=== PATIENT | male | born 1975 | race Two or more races ===

== ENCOUNTER 2018-08-31 17:41 | Emergency (ER) | payer OTHER ==
[~2018-08-31] VITALS: Ht 180.3 cm; Wt 95.3 kg
== END 2018-08-31 19:48 | disposition home or self-care (01) ==
LOC: ER 17:41
DX: G44.209 Tension-type headache, unspecified, not intractable (principal)

== ENCOUNTER 2019-12-23 14:26 | Emergency (ER) | payer OTHER ==
[~2019-12-23] VITALS: Ht 180.3 cm; Wt 88.5 kg
== END 2019-12-23 17:53 | disposition home or self-care (01) ==
LOC: ER 14:26
DX: R03.0 Elevated blood-pressure reading, without diagnosis of hypertension (principal)

== ENCOUNTER 2020-06-03 21:18 | Emergency (ER) | payer OTHER ==
[~2020-06-03] VITALS: Ht 180.3 cm; Wt 93.4 kg
== END 2020-06-03 22:37 | disposition home or self-care (01) ==
LOC: ER 21:18
DX: R05 Cough (principal)

== ENCOUNTER 2020-07-01 16:54 | Inpatient (IN) | payer OTHER ==
[~2020-07-01] VITALS: Ht 177.8 cm; Wt 81.6 kg
--- NOTE | 2020-07-01 17:18 | NUR ---
PT ALERTA Y ORIENTADO X3 ESFERAS REFIERE FUE DX CON COVID 19 EL PASADO MIERCOLES CON SINTOMAS LEVES Y MANEJABLES. EL ADRIANA DE HOY EN LA MANANA SE DESPERTO CON FALTA DE AIRE Y VISITO EL [facility] DONDE LE DIERON EL TRATAMIENTO MONOCLONAL PARA EL COVID, E INDICA SINTIO MEJORIA EN EL MOMENTO Y LE DIERON EL ROSELIA. AL LLEGAR A DODSON HOGAR SINTIO TEMBLORES, FALTA DE AIRE Y DEBILIDAD MUSCULAR GENERALIZADA. LLEGA A ER CON KIN SATURACION DE PULSO 88-90%, TEMPERATURA DE 104.5 Y CON DIFICULTAD PARA COMPLETAR ORACIONES. SE UBICA EN ZENAIDA EN SECCION K AISLAMIENTO, SE SUBEN BARANDAS Y SE COLOCAN FRENOS POR PRECAUCION.
[2020-07-14] MEDS ORDERED: ELIQUIS5 MG PO (08:38)
== END 2020-07-14 12:14 | disposition home or self-care (01) | DRG 177 ==
LOC: ER 16:54 → MEDJ 18:30
PROVIDERS: ADMIT Internal Medicine; ATTEND Internal Medicine
PROC: 8E0ZXY6 Isolation (ICD-10-PCS; 2020-07-01)
PROC: 3E0F7SF Introduction of Other Gas into Respiratory Tract, Via Natural or Artificial Opening (ICD-10-PCS; 2020-07-01)
PROC: BW24ZZZ Computerized Tomography (CT Scan) of Chest and Abdomen (ICD-10-PCS; 2020-07-01)
PROC: XW033E5 Introduction of Remdesivir Anti-infective into Peripheral Vein, Percutaneous Approach, New Technology Group 5 (ICD-10-PCS; principal; 2020-07-02)
PROC: 4A12X4Z Monitoring of Cardiac Electrical Activity, External Approach (ICD-10-PCS; 2020-07-02)
PROC: BW2410Z Computerized Tomography (CT Scan) of Chest and Abdomen using Low Osmolar Contrast, Unenhanced and Enhanced (ICD-10-PCS; 2020-07-08)
PROC: B24BYZZ Ultrasonography of Heart with Aorta using Other Contrast (ICD-10-PCS; 2020-07-08)
PROC: B54DZZZ Ultrasonography of Bilateral Lower Extremity Veins (ICD-10-PCS; 2020-07-11)
DX: U07.1 COVID-19 (principal); J12.82 Pneumonia due to coronavirus disease 2019; I26.99 Other pulmonary embolism without acute cor pulmonale; I10 Essential (primary) hypertension; R09.02 Hypoxemia; R06.02 Shortness of breath; G44.209 Tension-type headache, unspecified, not intractable

== ENCOUNTER 2020-07-23 10:24 | Emergency (ER) | payer OTHER ==
[~2020-07-23] VITALS: Ht 180.3 cm; Wt 92.1 kg
[~2020-07-23 10:24] MED LIST: ELIQUIS5 MG PO
[2020-07-23] MEDS ORDERED: CELEBREX100 MG PO (16:52)
== END 2020-07-23 17:21 | disposition home or self-care (01) ==
LOC: ER 10:24 → CPU-OBS 10:26 → ER 10:26
DX: R07.89 Other chest pain (principal); M94.0 Chondrocostal junction syndrome [Tietze]
CPT/HCPCS: G0378; G0379; 93005; 82805; 36600

== ENCOUNTER 2021-12-30 20:39 | Emergency (ER) | payer OTHER ==
[~2021-12-30] VITALS: Ht 180.3 cm; Wt 93.0 kg
[~2021-12-30 20:39] MED LIST changes: +CELEBREX100 MG PO
== END 2021-12-30 22:53 | disposition home or self-care (01) ==
LOC: ER 20:39
DX: R51.9 Headache, unspecified (principal)

== ENCOUNTER 2022-08-14 12:51 | Emergency (ER) | payer OTHER ==
[~2022-08-14] VITALS: Ht 180.3 cm; Wt 88.5 kg
== END 2022-08-14 17:02 ==
LOC: ER 12:51
DX: G44.209 Tension-type headache, unspecified, not intractable (principal)

== ENCOUNTER 2024-01-29 12:01 | Emergency (ER) | payer OTHER ==
[~2024-01-29] VITALS: Ht 180.3 cm; Wt 104.3 kg
[2024-01-29] MEDS ORDERED: cloNIDine HCL 0.2 MG TABLET PO STA (13:18)
[2024-01-29 14:02] LABS: PH,URINE 5.5 (5.0-8.0); URINE APPEARANCE Clear; URINE BILIRRUBIN Negative (NEGATIVE); URINE BLOOD Negative; URINE COLOR Yellow; URINE GLUCOSE Negative (NEGATIVE); URINE KETONE Negative (NEGATIVE); URINE LEUKOCYTE Negative; URINE NITRATE Negative; URINE PROTEIN Negative (NEGATIVE); URINE UROBILINOGEN 0.2 E.U./dl
[2024-01-29 14:04] LABS: HEMOGLOBIN 15.2 g/dL (13-16.00); MEAN CELL VOLUME 89.3 fL (80.0-100.00); MEAN CORPUSCULAR HEMOGLOBIN 30.2 pg (27.00-32.0); MEAN CORPUSCULAR HGB CONC 33.8 g/dl (32.0-36.0); PLATELET COUNT 152 K/uL (150-450); RED BLOOD COUNT 5.03 M/uL (4.00-6.00); RED CELL DISTRIBUTION WIDTH 13.2 % (11.5-14.5)
[2024-01-29 14:06] LABS: URINE WBC 2.7 uL (0.0-23.2)
[2024-01-29 14:10] LABS: URINE BACTERIA 2.5 uL (0.0-1933); URINE EPITHELIAL CELLS 0.1 uL (0.0-38.8)
[2024-01-29 14:20] LABS: CALCIUM 9.4 mg/dL (8.5-10.1); CREATININE SERUM 1.2 mg/dL (0.70-1.30); GFR 65.18; POTASSIUM 3.97 mEq/L (3.5-5.1)
== END 2024-01-29 14:53 | disposition home or self-care (01) ==
LOC: ER 12:03
PROVIDERS: General Practice
DX: R51.9 Headache, unspecified (principal); I10 Essential (primary) hypertension

== ENCOUNTER 2024-05-27 17:11 | Inpatient (IN) | payer OTHER ==
[~2024-05-27] VITALS: Ht 172.7 cm; Wt 104.3 kg
[2024-05-27] MEDS ORDERED: IRBESARTAN300 MG (17:17)
[2024-05-27] MEDS ORDERED: BUDESONIDE 0.5 MG/2 ML AMPUL.NEB IH ONE (17:45)
[2024-05-27] MEDS ORDERED: IPRATROPIUM/ALBUTEROL SULFATE 3 ML AMPUL.NEB IH SCH (17:45)
[2024-05-27 18:06] LABS: HEMATOCRIT 46.8 % (39.0-48.0); HEMOGLOBIN 15.6 g/dL (13-16.00); MEAN CELL VOLUME 91.3 fL (80.0-100.00); MEAN CORPUSCULAR HEMOGLOBIN 30.4 pg (27.00-32.0); MEAN CORPUSCULAR HGB CONC 33.3 g/dl (32.0-36.0); PLATELET COUNT 142 K/uL (150-450); RED BLOOD COUNT 5.13 M/uL (4.00-6.00); RED CELL DISTRIBUTION WIDTH 13.3 % (11.5-14.5)
[2024-05-27 21:02] LABS: URINE APPEARANCE Clear; URINE BILIRRUBIN Negative (NEGATIVE); URINE BLOOD Negative; URINE COLOR Yellow; URINE GLUCOSE Negative (NEGATIVE); URINE KETONE Trace (NEGATIVE); URINE LEUKOCYTE Negative; URINE NITRATE Negative; URINE PROTEIN 30 (NEGATIVE)
[2024-05-27 21:06] LABS: URINE BACTERIA 4.8 uL (0.0-1933); URINE EPITHELIAL CELLS 2.5 uL (0.0-38.8); URINE RBC 4.1 uL (0.0-20.8); URINE WBC 3.4 uL (0.0-23.2)
[2024-05-27 21:22] LABS: ALBUMIN 3.9 gm/dL (3.4-5.0); BILIRUBIN TOTAL 0.57 mg/dL (0.3-1.2); CREATININE SERUM 1.23 mg/dL (0.70-1.30); GFR 63.35; GLOBULINA 4.1 G/DL (2.4-3.5); POTASSIUM 3.86 mEq/L (3.5-5.1)
[2024-05-27 21:23] LABS: URINE CAST 0.29 uL (0.0-1.40)
[2024-05-27 22:20] LABS: ABG PH 7.467 (7.35-7.45); ABG PO2 79.4 mmHg (80-100); ABG pCO2 32.2 mmHg (35-45); BASE EXCESS -0.1 mmol/l; BICARBONATE 22.8 mmol/l (23-25); SaO2 96.4 %; Tco2 23.8 mmol/l; allen test SATISFACTORY; o2 21 %; puncture site RADIAL LEFT
[2024-05-27] MEDS ORDERED: AZITHROMYCIN 500 MG VIAL IV ONE (22:30)
[2024-05-27] MEDS ORDERED: CEFTRIAXONE SODIUM 2,000 MG VIAL IV ONE (22:30)
[2024-05-27] MEDS ORDERED: 0.9 % SODIUM CHLORIDE 1,000 ML IV ONE (22:45)
[2024-05-28] MEDS ORDERED: METHYLPREDNISOLONE SOD SUCC 40 MG VIAL IV SCH (00:38)
[2024-05-28] MEDS ORDERED: 0.9 % SODIUM CHLORIDE 1,000 ML IV SCH (00:45)
[2024-05-28] MEDS ORDERED: ACETAMINOPHEN 500 MG GEL..CAP PO PRN (00:45)
[2024-05-28] MEDS ORDERED: IPRATROPIUM BROMIDE 0.5 MG/2.5 ML AMPUL.NEB IH SCH ×2 (01:00→13:00)
[2024-05-28] MEDS ORDERED: GUAIFEN/DEXTROMETHORPHAN/PE 10 ML BLIST.PACK PO SCH (01:00)
[2024-05-28 01:42] LABS: INR 1.03; PARTIAL THROMBOPLASTIN TIME 32.3 SECONDS (22.0-34.0); PROTHROMBIN TIME 11.2 SECONDS (9.0-11.5)
[2024-05-28] MEDS ORDERED: LEVALBUTEROL HCL 1.25 MG/3 ML SOLUTION IH SCH (08:00)
[2024-05-28 08:24] VITALS: BP 138/83
[2024-05-28] MEDS ORDERED: FAMOTIDINE/PF 20 MG in 0.9 % SODIUM CHLORIDE 8 ML IV PUSH SCH (09:00)
[2024-05-28] MEDS ORDERED: AZITHROMYCIN 500 MG in DEXTROSE 5 % IN WATER 250 ML IV SCH (09:00)
[2024-05-28] MEDS ORDERED: IRBESARTAN 300 MG TABLET PO SCH (09:00)
[2024-05-28] MEDS ORDERED: BUDESONIDE 0.5 MG/2 ML AMPUL.NEB IH SCH (09:00)
[2024-05-28] MEDS ORDERED: ENOXAPARIN SODIUM 40 MG/0.4 ML SYRINGE SUBCUTANEO SCH (09:00)
[2024-05-28] MEDS ORDERED: CEFTRIAXONE SODIUM 2,000 MG in 0.9 % SODIUM CHLORIDE 100 ML IV SCH (09:00)
[2024-05-28] MEDS ORDERED: AZITHROMYCIN 500 MG VIAL IV STA (12:25)
[2024-05-28 16:59] VITALS: BP 142/85; O2SAT 98
[2024-05-28 18:40] LABS: MYCOPLASMA PNEUMONIAE IGM NON REACTIVE (NO REACTIVE)
[2024-05-29 01:08] VITALS: BP 147/77; O2SAT 98
[2024-05-29 06:42] LABS: HEMATOCRIT 42.1 % (39.0-48.0); HEMOGLOBIN 14.5 g/dL (13-16.00); MEAN CELL VOLUME 90.3 fL (80.0-100.00); MEAN CORPUSCULAR HGB CONC 34.3 g/dl (32.0-36.0); PLATELET COUNT 163 K/uL (150-450); RED BLOOD COUNT 4.66 M/uL (4.00-6.00); RED CELL DISTRIBUTION WIDTH 13.3 % (11.5-14.5)
[2024-05-29 07:06] LABS: ALBUMIN 3.6 gm/dL (3.4-5.0); BILIRUBIN TOTAL 0.3 mg/dL (0.3-1.2); CREATININE SERUM 1.16 mg/dL (0.70-1.30); GFR 67.78; GLOBULINA 3.2 G/DL (2.4-3.5); MAGNESIUM 2.2 mg/dL (1.8-2.4); PHOSPHOROUS 3.4 mg/dL (2.5-4.9); POTASSIUM 4.65 mEq/L (3.5-5.1); TOTAL PROTEIN 6.8 gm/dL (6.4-8.2)
[2024-05-29 07:11] LABS: C-REACTIVE PROTEIN 2.08 MG/DL (0.00-0.29)
[2024-05-29 08:00] VITALS: BP 143/75; O2SAT 97
[2024-05-29] MEDS ORDERED: AZITHROMYCIN 500 MG VIAL IV SCH (09:00)
[2024-05-29 17:03] VITALS: BP 147/81; O2SAT 95
[2024-05-30 02:03] VITALS: BP 125/77; O2SAT 96
[2024-05-30 08:36] VITALS: BP 146/90; O2SAT 99
[2024-05-30] MEDS ORDERED: SODIUM CHLORIDE 0.45 % 1,000 ML IV SCH (10:30)
[2024-05-30 14:10] LABS: ABG PO2 84.7 mmHg (80-100); ABG pCO2 37.3 mmHg (35-45); BASE EXCESS -0.4 mmol/l; BICARBONATE 23.7 mmol/l (23-25); SaO2 96.5 %; Tco2 24.8 mmol/l
[2024-05-30 14:37] LABS: allen test SATISFACTORY; o2 21 %; puncture site RADIAL RIGHT
[2024-05-30] MEDS ORDERED: AMLODIPINE BESYLATE 5 MG TABLET PO SCH (17:00)
[2024-05-30 17:12] VITALS: BP 144/91; O2SAT 94
[2024-05-30] MEDS ORDERED: FAMOtidine 20 MG TABLET PO SCH (21:00)
[2024-05-31 01:58] VITALS: BP 129/77; O2SAT 95
[2024-05-31 08:00] VITALS: BP 136/81
[2024-05-31] MEDS ORDERED: XOPENEX CO1.25 MG/0. IH (08:30)
[2024-05-31] MEDS ORDERED: IPRATROPIU0.2 MG/1 M IH (08:30)
[2024-05-31] MEDS ORDERED: AMLODIPINE BESYL5 MG PO (08:30)
[2024-05-31] MEDS ORDERED: ALTIPRES LIQUI473 ML PO (08:31)
[2024-05-31] MEDS ORDERED: BUDESONIDE0.5 MG/2 M IH (08:31)
[2024-05-31] MEDS ORDERED: AVAPRO300 MG PO (08:31)
[2024-05-31] MEDS ORDERED: FAMOTIDINE20 MG PO (08:31)
[2024-05-31] MEDS ORDERED: MEDROLPACK PO (08:32)
[2024-05-31] MEDS ORDERED: MOXIFLOXACIN H400 MG PO (08:36)
== END 2024-05-31 12:27 | disposition home or self-care (01) | DRG 194 ==
LOC: ER 17:13 → MEDI 05-28 00:38
PROVIDERS: General Practice; Internal Medicine Infectious Disease; Preventive Medicine Public Health & General Preventive Medicine; ADMIT Internal Medicine; ATTEND Internal Medicine
PROC: BW24ZZZ Computerized Tomography (CT Scan) of Chest and Abdomen (ICD-10-PCS; principal; 2024-05-27)
DX: J18.9 Pneumonia, unspecified organism (principal); N17.9 Acute kidney failure, unspecified; R09.02 Hypoxemia; I10 Essential (primary) hypertension; Z86.711 Personal history of pulmonary embolism